=== PATIENT | male | born 1985 | race Caucasian/White ===

== ENCOUNTER 2017-07-19 23:40 | Emergency (ER) | payer OTHER ==
[2017-07-20] MEDS ORDERED: NS 0.9% 1000 ML* 1,000 ML IV ONE ×2 (00:25→02:15)
[2017-07-20 01:30] LABS: ABS Basophils 0 10^3/ul (0-0.2); ABS Eosinophils 0.1 10^3/ul (0-0.6); ABS Lymphocytes 1.9 10^3/ul (1.0-4.8); ABS Monocytes 0.4 10^3/ul (0-0.8); ABS Neutrophils 1.4 10^3/ul (1.5-7.7); ABS Nucleated RBC 0 10^3/ul; Eosinophil % 1.8 % (0-6); Hematocrit 36 % (42-52); Hemoglobin 12.6 g/dl (14.0-18.0); Lymphocyte % 49.8 % (25-47); Mean Corpuscular HGB Conc 35 g/dl (31-36); Mean Corpuscular Hemoglobin 30 pg (27-31); Mean Corpuscular Volume 87 fL (80-94); Mean Platelet Volume 7 um3 (7.4-10.4); Nucleated Red Blood Cells % 0.1; Platelet Count 224 10^3/ul (150-450); Red Cell Distribution Width 13 % (10.5-15); White Blood Count 3.8 10^3/ul (3.5-10.8)
[2017-07-20 03:33] LABS: Urine Appearance Clear; Urine Blood Negative (Negative); Urine Color Straw; Urine Ketones Negative (Negative); Urine Protein Negative (Negative); Urine Specific Gravity 1.008 (1.010-1.030); Urine Urobilinogen Negative (Negative)
--- NOTE | 2017-07-20 04:30 | ED ---
Lisseth Disla Edward, scribed for Nina Santos MD on 07/20/17 at 0007 . Altered Mental Status - HPI Summary HPI Summary: 32 y/o male BIBA c/o episode of unresponsiveness lasting around 15-20 minutes at around 22:30 tonight. The pt was talking to his father and suddenly became dizzy. The pt then sat down and when he lied down on the bed he became unresponsive suddenly. Denies seizure activity tonight. Episode witnessed by father. Pt's mother states he has a PMHx sleep problems and takes Pentobarbital. Pt took 400 mg at around 22:30 tonight. PMHx epilepsy after starting Pentobarbital, within the last year. Pt takes Gabapentin for epilepsy. 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 Timing: Lasting Minutes Character: Responsiveness - unresponsiveness Aggravating Factor(s): Nothing Alleviating Factor(s): Nothing Associated Signs And Symptoms: Positive: Dizziness Related History: Seizure - Allergies/Home Medications Allergies/Adverse Reactions: Allergies Allergy/AdvReac Type Severity Reaction Status Date / Time No Known Allergies Allergy Verified 07/19/17 23:50 PMH/Surg Hx/FS Hx/Imm Hx Previously Healthy: No Neurological History: Reports: Hx Seizures Psychiatric History: Reports: Other Psychiatric Issues/Disorders - sleep problems Infectious Disease History: No Infectious Disease History: Reports: Traveled Outside the [place] in Last 30 Days - [place] - Family History Known Family History: Positive: Unknown - Social History Alcohol Use: None Substance Use Type: Reports: None Smoking Status (MU): Light Every Day Tobacco Smoker Review of Systems Constitutional: Negative Eyes: Negative ENT: Negative Cardiovascular: Negative Respiratory: Negative Gastrointestinal: Negative Genitourinary: Negative Musculoskeletal: Negative Skin: Negative Neurological: Other - episode of unresponsiveness, dizziness Psychological: Normal All Other Systems Reviewed And Are Negative: Yes Physical Exam - Summary Physical Exam Summary: VITAL SIGNS: Reviewed. GENERAL: Patient is a well-developed and nourished male who is lying comfortable in the stretcher. Patient is not in any acute respiratory distress. HEAD AND FACE: No signs of trauma. No ecchymosis, hematomas or skull depressions. No sinus tenderness. EYES: PERRLA, EOMI x 2, No injected conjunctiva, no nystagmus. EARS: Hearing grossly intact. Ear canals and tympanic membranes are within normal limits. MOUTH: Oropharynx within normal limits. NECK: Supple, trachea is midline, no adenopathy, no JVD, no carotid bruit, no c- spine tenderness, neck with full ROM. CHEST: Symmetric, no tenderness at palpation LUNGS: Clear to auscultation bilaterally. No wheezing or crackles. CVS: Regular rate and rhythm, S1 and S2 present, no murmurs or gallops appreciated. ABDOMEN: Soft, non-tender. No signs of distention. No rebound no guarding, and no masses palpated. Bowel sounds are normal. EXTREMITIES: FROM in all major joints, no edema, no cyanosis or clubbing. NEURO: Alert and oriented x 3. Sleepy and answering questions but slowly. Speech is mildly slurred and follows commands. Cranial nerve exams negative. SKIN: Dry and warm Triage Information Reviewed: Yes Vital Signs On Initial Exam: Initial Vitals Temp Pulse Resp BP Pulse Ox 97.9 F 79 16 107/65 96 07/19/17 23:48 07/19/17 23:48 07/19/17 23:48 07/19/17 23:48 07/19/17 23:48 Vital Signs Reviewed: Yes - Stephie Coma Scale Coma Scale Total: 15 Diagnostics - Vital Signs Vital Signs Temp Pulse Resp BP Pulse Ox 07/19/17 23:48 97.9 F 79 16 107/65 96 - Laboratory Result Diagrams: 07/20/17 01:16 07/20/17 01:16 Lab Statement: Any lab studies that have been ordered have been reviewed, and results considered in the medical decision making process. - EKG 1 EKG Interpretation: 01:15 - NSR @ 78 BPM. Normal axis. Normal interval. No ischemic changes. Re-Evaluation - Re-Evaluation 1 Re-Evaluation Time: 01:26 Comment: Discuss plan of care. Pt refuses head CT 2 Re-Evaluation Time: 03:51 Comment: Discuss lab results. Pt will sign out AMA. Altered Mental Statu Course/Dx - Course Course Of Treatment: On reeval @ 01:25 the pt refused a head CT. Pt states he has had many before and does not want one now. I informed the pt of the risks of missing intracranial processes, including CVA, hemorrhages and infections without a head CT. Pt still refuses. I discussed with the pt in front of his mother the risks of leaving, including but not limited to arrythmias, syncope, brain damage, permanent disability and . The pt is A&Ox3. The pt fully undertsands the risks and still would like to sign out AMA. - Diagnoses Discharge Diagnoses: Syncope, Barbiturate abuse Discharge - Discharge Plan Condition: Stable Disposition: AGAINST MEDICAL ADVICE Referrals: No Primary Care Phys,NOPCP [Primary Care Provider] - The documentation as recorded by the Lisseth salas Edward accurately reflects the service I personally performed and the decisions made by me, Nina Santos MD.
[2017-07-20] MEDS ORDERED: Gabapentin CAP(*) 300 MG PO ONE (10:03)
[2017-07-20 10:37] VITALS: BP 118/80
--- NOTE | 2017-07-21 00:30 | CONS ---
CC: Chela Jenkins MD * MEDICAL CONSULTATION NOTE: DATE OF CONSULT: 07/20/17 - EMERGENCY DEPARTMENT HISTORY OF PRESENT ILLNESS: Dr. Nina Santos kindly asked me to see this patient. I examined him on 07/20/17. He came because he felt he was having seizures. I found his story very tangential and confusing. 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 He says he was diagnosed as having adult onset seizure disorder. According to him, he was originally treated with gabapentin. For some reason, he was changed to lamotrigine and for unknown reasons was changed again to pentobarbital. He was not sure if that was the name of the barbiturate he was taking. He had some at home, but did not bring in his bottles. He had no documentation or records whatsoever with him. He also stated he had spent 30 or 40 days in [place], of which 7 of them were in a residential facility where he is being detoxed from lamotrigine. PAST MEDICAL HISTORY: Otherwise unremarkable. FAMILY HISTORY: Unremarkable. I could not identify exactly what his barbiturate was, he said he took some this morning, he took some the day of arriving in the emergency room. SOCIAL HISTORY: He does not abuse alcohol. He does not smoke. He is accompanied by his mother to the emergency room. REVIEW OF SYSTEMS: Unremarkable. PHYSICAL EXAMINATION: His height was 5 feet and 7 inches, weight 170 pounds. Blood pressure 118/80, heart rate 85, respirations 18, O2 saturation 98% on room air. He is a well-developed, well-nourished young man. He was alert. Her was in good spirits and cooperative. He looked very comfortable. HEENT was unremarkable. No signs of head trauma. Pupils were equal, round. Extraocular muscles intact. Mouth and pharynx are clear. Neck was supple. No JVD, adenopathy, or thyromegaly. Heart and lungs were clear to auscultation and percussion. Abdomen was benign. There was no pedal edema. There were no joint deformities. Skin was warm and dry and intact. He moved all limbs well. Speech was clear and distinct. It is not clear for me which elements of the story are perfectly accurate. It is difficult to guess what his clinicians were thinking at the time of all his medication changes. In any event, the patient seemed quite stable. He does not fall down or hurt himself when he has the seizures. He said he would make an appointment with his primary doctor, Dr. Chela Jenkins, for followup. He did not want to be referred to our neurologist. He seemed to know some other neurologists in other cities. He did request gabapentin 600 mg p.o. before discharge. He said this is his usual dose that he would take this 2 or 3 times a day. I prescribed that for him and he received it before discharge. He received no other prescriptions. FINAL DIAGNOSIS: Seizure disorder. [id number]/[facility] #: [id number] MTDD
== END 2017-07-20 10:00 | disposition left against medical advice (07) ==
LOC: ED 23:40
DX: R55 Syncope and collapse (principal); F13.10 Sedative, hypnotic or anxiolytic abuse, uncomplicated; F17.200 Nicotine dependence, unspecified, uncomplicated; Z53.29 Procedure and treatment not carried out because of patient's decision for other reasons
CPT/HCPCS: 36415; 80053; 80184; 80307; 80320; 81003; 84443; 85025; 93005; 96360; 99284; A9270-GY; G0480